=== PATIENT | female | born 1980 | race Caucasian/White ===

== ENCOUNTER 2017-03-20 09:50 | Day surgery (SDC) | payer MEDICAID ==
[~2017-03-20] VITALS: Ht 154.9 cm; Wt 64.5 kg
--- NOTE | 2017-03-21 08:19 | OR ---
ADMIT: 03/20/2017 RM/LOC: [facility] MR#: [id number] [address] AMADO IESHA [place]án [place] [address] Operative/Delivery Room Report SEX: F AGE: 37 : 1980 SURGERY DATE: 03/20/2017 SURGEON: Yamil Schmidt MD [employer] OPERATOR: None. PREPROCEDURE DIAGNOSES: 1. Left sacroiliac joint dysfunction. 2. Chronic low back pain. POSTPROCEDURE DIAGNOSES: 1. Left sacroiliac joint dysfunction. 2. Chronic low back pain. PROCEDURE PERFORMED: Left sacroiliac joint injection. INDICATIONS FOR PROCEDURE: The patient is a pleasant female with history of chronic low back pain secondary to above-mentioned diagnoses comes here for planned left SI joint injection. ANESTHESIA: Local without sedation. ESTIMATED BLOOD LOSS: Zero. COMPLICATIONS: None immediately evident. DESCRIPTION OF PROCEDURE: After the patient was seen in the preoperative area, vitals signs were taken. Prior to the procedure, the risks, benefits, and alternative therapies were discussed at length. Patient consent was obtained and updated. The patient was taken to the fluoroscopy suite and placed on the fluoroscopy table in the prone position. Pressure points were padded to comfort, monitors applied, and a timeout performed. C-arm was brought in to identify the left SI joint. Lidocaine plain 1%, approximately 2 mL, was used to anesthetize the skin and underlying ADMIT: 03/20/2017 RM/LOC: [facility] MR#: [id number] [id number] IESHA [place] [address] Operative/Delivery Room Report SEX: F AGE: 37 : 1980 subcutaneous tissue. A 3.5-inch 22-gauge curved-tip needle was then advanced through the anesthetized skin and placed inside the inferior portion of the SI joint. Isovue-300 was injected into the SI joint and showed good spread into the SI joint. After correct placement was confirmed, 5 mL of 0.25% Marcaine and 80 mg of methylprednisolone were injected. The patient tolerated the procedure well without any complications. The patient was then brought to PACU where she recovered nicely. PLAN: The patient was examined after 20 minutes after the procedure and the patient had 80% reduction of pain. Discharge instructions were given, followup scheduled. The patient was discharged home with a truck driver's offsider. Yamil Schmidt MD/ sophie JOB #: [id number] CC: Yamil Schmidt, Attending Physician FAMILY PHYSICIAN, Family Physician
== END 2017-03-20 11:10 | disposition home or self-care (01) ==
LOC: SSS 09:50
DX: G89.29 Other chronic pain (principal); M53.3 Sacrococcygeal disorders, not elsewhere classified; Z79.899 Other long term (current) drug therapy